=== PATIENT | female | born 1975 | race Caucasian/White ===

== ENCOUNTER 2022-04-18 14:43 | Emergency (ER) | payer OTHER ==
[~2022-04-18] VITALS: Ht 170.2 cm; Wt 102.5 kg
--- NOTE | 2022-04-18 14:47 | NUR ---
TO CHAIR Therese
[2022-04-18 14:48] VITALS: BP 140/82
[2022-04-18] MEDS ORDERED: BENZ150C2 PO (15:29)
[2022-04-18] MEDS ORDERED: ALBU0.0912 IH (15:29)
[2022-04-18] MEDS ORDERED: METH4TAB3 PO (15:29)
[2022-04-18] MEDS ORDERED: DIPH25TA53 PO (15:29)
--- NOTE | 2022-04-18 15:43 | NUR ---
PW SWABBED AND SENT TO LAB
--- NOTE | 2022-04-18 15:43 | NUR ---
Patient discharged with v/s stable. Written and verbal after care instructions given and explained. Patient alert, oriented and verbalized understanding of instructions. Ambulatory with steady gait. All questions addressed prior to discharge. ID band removed. Patient advised to follow up with PMD. Rx of PREDNISONE, MOTRIN given. Patient educated on indication of medication including possible reaction and side effects. Opportunity to ask questions provided and answered.
== END 2022-04-18 15:43 | disposition home or self-care (01) ==
LOC: MED 14:43
DX: J45.901 Unspecified asthma with (acute) exacerbation (principal); Z20.822 Contact with and (suspected) exposure to COVID-19
CPT/HCPCS: 99283